=== PATIENT | female | born 1980 | race Two or more races ===

== ENCOUNTER 2017-06-18 10:48 | Inpatient (IN) | payer MEDICAID, OTHER ==
[~2017-06-18] VITALS: Ht 172.7 cm; Wt 173.8 kg
[2017-06-18 11:35] LABS: Basophils # (auto) 0.1 uL; Eosinophils # (auto) 0.2 uL; Mean Corpuscular Hemoglobin 20.2 pg (28.0-32.0); Monocytes # (auto) 0.3 uL
[2017-06-18 11:43] LABS: Basophils % (auto) 1.3 % (0.0-2.0); Eosinophils % (auto) 3.4 % (0.0-7.0); Hemoglobin 8.4 g/dL (12.2-16.2); Lymphocytes % (auto) 16.5 % (10.0-50.0); Mean Corpuscular Hgb Conc. 30.2 g/dL (32.0-36.0); Monocytes % (auto) 5.2 % (0.0-12.0); Neutrophils # (auto) 4.6 uL; Neutrophils % (auto) 73.6 % (37.0-80.0); Platelet Count (auto) 373 10^3/uL (140-450); Red Blood Cells 4.19 10^6/uL (4.0-5.20)
[2017-06-18 11:48] LABS: Mean Corpuscular Volume 67.1 fL (80.0-100.0); Red Cell Distribution Width 24.7 % (11.8-14.3); White Blood Cell 6.4 10^3/uL (4.4-10.8)
[2017-06-18 12:06] LABS: Albumin 3.1 g/dL (3.4-5.0); BUN/Creatinine Ratio 14.8; Bilirubin, Total 0.2 mg/dL (0.2-1.0); Calcium 8.7 mg/dL (8.5-10.1); Potassium 3.2 mmol/L (3.5-5.1); Total Protein 8.4 g/dL (6.4-8.2)
[2017-06-18] MEDS ORDERED: SODIUM CHLORIDE 0.9% 500 ML IVB ONE (16:40)
[2017-06-18] MEDS ORDERED: PANTOPRAZOLE 40 MG/10 ML VIAL IV STA (16:40)
[2017-06-18] MEDS ORDERED: ONDANSETRON HCL 4 MG/2 ML VIAL IV ONE (16:45)
[2017-06-18] MEDS ORDERED: HYDROmorphone HCL 2 MG/ML VL IV ONE (16:45)
[2017-06-18] MEDS ORDERED: METOCLOPRAMIDE HCL 5MG/ml INJ 2ml VIAL IV PRN (18:15)
[2017-06-18] MEDS: POTASSIUM CHL 20MEQ/50ML 50 ML IV SCH ×2 (18:15→20:15)
[2017-06-18] MEDS ORDERED: MORPHINE SULFATE 10 MG/ML INJ 1ML SDV IV PRN (18:15)
[2017-06-18] MEDS ORDERED: ACETAMINOPHEN 325 MG TAB PO PRN (18:15)
[2017-06-18] MEDS ORDERED: NITROGLYCERIN 0.4 MG SL TAB SL PRN (18:15)
[2017-06-18] MEDS ORDERED: cloNIDine HCL 0.1 MG TAB ONE (18:55)
[2017-06-18] MEDS ORDERED: cloNIDine HCL 0.1 MG TAB PO PRN (18:58)
[2017-06-18] MEDS: SOD CHL 0.45% 1,000 ML IV SCH (19:09)
[2017-06-18] MEDS ORDERED: POTASSIUM CHL 20 Meq TABLET PO ONE (19:30)
[2017-06-18 19:31] VITALS: BP 165/96
[2017-06-18 20:15] VITALS: BP 123/78
[2017-06-18] MEDS: MORPHINE SULFATE 10 MG/ML INJ 1ML SDV IV PRN (20:26)
[2017-06-18 22:00] VITALS: BP 123/78
[2017-06-19] MEDS: MORPHINE SULFATE 10 MG/ML INJ 1ML SDV IV PRN ×6 (00:30→21:07)
[2017-06-19] MEDS ORDERED: HYDR-4416 PO (00:52)
[2017-06-19] MEDS ORDERED: HCTZ25T PO (00:52)
[2017-06-19] MEDS ORDERED: HYDR25TA35 PO (00:52)
[2017-06-19] MEDS ORDERED: CLON0.2T PO (00:52)
[2017-06-19] MEDS ORDERED: HYDR-4683 PO (00:52)
[2017-06-19] MEDS ORDERED: LOSA50TA6 PO (00:52)
[2017-06-19] MEDS ORDERED: HYDR1TAB97 PO (00:52)
[2017-06-19] MEDS ORDERED: ALPR1TAB7 PO (00:52)
[2017-06-19] MEDS ORDERED: HYDR-4072 PO (00:52)
[2017-06-19] MEDS ORDERED: FERR-20 PO (00:52)
[2017-06-19] MEDS: SOD CHL 0.45% 1,000 ML IV SCH ×2 (04:18→20:41)
[2017-06-19 05:00] VITALS: BP 130/80
[2017-06-19 05:31] LABS: Basophils # (auto) 0 uL; Basophils % (auto) 0.5 % (0.0-2.0); Eosinophils # (auto) 0.2 uL; Lymphocytes # (auto) 1.6 uL; Monocytes # (auto) 0.4 uL; Neutrophils # (auto) 3.6 uL; White Blood Cell 5.9 10^3/uL (4.4-10.8)
[2017-06-19 05:34] LABS: Eosinophils % (auto) 3.7 % (0.0-7.0); Hemoglobin 7.7 g/dL (12.2-16.2); Lymphocytes % (auto) 26.6 % (10.0-50.0); Mean Corpuscular Hemoglobin 20.8 pg (28.0-32.0); Mean Corpuscular Volume 67.2 fL (80.0-100.0); Monocytes % (auto) 7.2 % (0.0-12.0); Platelet Count (auto) 365 10^3/uL (140-450); Red Blood Cells 3.71 10^6/uL (4.0-5.20)
[2017-06-19 05:43] LABS: % Iron Saturation 6.7 % (15-50)
[2017-06-19 05:44] LABS: Red Cell Distribution Width 25.1 % (11.8-14.3)
[2017-06-19 05:47] LABS: Albumin 2.7 g/dL (3.4-5.0); BUN/Creatinine Ratio 16.3; Calcium 8.3 mg/dL (8.5-10.1); Potassium 3.6 mmol/L (3.5-5.1)
[2017-06-19 05:49] LABS: Bilirubin, Total 0.4 mg/dL (0.2-1.0); Total Protein 7.9 g/dL (6.4-8.2)
[2017-06-19 09:00] VITALS: BP 136/78
[2017-06-19 13:00] VITALS: BP 146/78
[2017-06-19] MEDS: ALPRAZolam 0.5 MG TAB PO PRN ×2 (14:08→22:05)
[2017-06-19 16:55] VITALS: BP 153/91
[2017-06-19 20:00] VITALS: BP 134/75
[2017-06-19] MEDS ORDERED: MORPHINE SULFATE 4 MG/ML SYR/VIAL ONE (20:56)
[2017-06-19] MEDS: PANTOPRAZOLE 40 MG/10 ML VIAL IV SCH ×2 (21:08→22:00)
[2017-06-19] MEDS: ONDANSETRON HCL 4 MG/2 ML VIAL IV PRN (21:51)
[2017-06-19 23:11] VITALS: BP 134/75
[2017-06-20 00:45] LABS: Urine Blood Negative /uL (Negative); Urine Specific Gravity 1.024 (1.001-1.035)
[2017-06-20 00:50] LABS: Urine Bacteria 1+ /hpf (None Seen); Urine Hyaline Cast RARE /lpf (0 - 2); Urine Mucus FEW (None Seen)
[2017-06-20 00:51] LABS: Urine WBC 1 /hpf (0 - 5)
[2017-06-20] MEDS ORDERED: DOCUSATE SOD 100 MG CAP PO ONE (01:00)
[2017-06-20] MEDS ORDERED: ZOLPIDEM TARTRATE 5 MG TAB PO ONE (01:00)
[2017-06-20] MEDS ORDERED: MORPHINE SULFATE 4 MG/ML SYR/VIAL ONE ×2 (01:35→06:02)
[2017-06-20] MEDS: MORPHINE SULFATE 10 MG/ML INJ 1ML SDV IV PRN ×6 (01:43→23:14)
[2017-06-20 05:00] VITALS: BP 141/63
[2017-06-20 05:44] LABS: Basophils # (auto) 0 uL; Basophils % (auto) 0.6 % (0.0-2.0); Eosinophils # (auto) 0.2 uL; Lymphocytes # (auto) 1.6 uL; Mean Corpuscular Hemoglobin 20.8 pg (28.0-32.0); Monocytes # (auto) 0.4 uL; Neutrophils % (auto) 57.5 % (37.0-80.0); White Blood Cell 5.2 10^3/uL (4.4-10.8)
[2017-06-20 05:47] LABS: Eosinophils % (auto) 4.5 % (0.0-7.0); Hematocrit 24.4 % (36.0-46.0); Hemoglobin 7.6 g/dL (12.2-16.2); Mean Corpuscular Hgb Conc. 31.3 g/dL (32.0-36.0); Mean Corpuscular Volume 66.6 fL (80.0-100.0); Monocytes % (auto) 7.4 % (0.0-12.0); Platelet Count (auto) 346 10^3/uL (140-450); Red Blood Cells 3.66 10^6/uL (4.0-5.20)
[2017-06-20 05:50] LABS: Red Cell Distribution Width 25.4 % (11.8-14.3)
[2017-06-20 06:02] LABS: Albumin 2.7 g/dL (3.4-5.0); Calcium 8.4 mg/dL (8.5-10.1); Potassium 3.6 mmol/L (3.5-5.1)
[2017-06-20 06:04] LABS: BUN/Creatinine Ratio 14.9
[2017-06-20 06:07] LABS: Bilirubin, Total 0.2 mg/dL (0.2-1.0); Total Protein 7.2 g/dL (6.4-8.2)
[2017-06-20] MEDS: FERROUS SULFATE 325 MG TAB PO SCH ×2 (08:08→18:45)
[2017-06-20] MEDS: ALPRAZolam 0.5 MG TAB PO PRN ×2 (08:08→21:32)
[2017-06-20 09:00] VITALS: BP_SYST 109; BP_SYST 142; BP_DIAS 102; BP_DIAS 72
[2017-06-20] MEDS: PANTOPRAZOLE 40 MG/10 ML VIAL IV SCH ×2 (10:00→21:32)
[2017-06-20] MEDS: SOD CHL 0.45% 1,000 ML IV SCH ×2 (10:01→23:21)
[2017-06-20 13:00] VITALS: BP 158/98
[2017-06-20] MEDS: ONDANSETRON HCL 4 MG/2 ML VIAL IV PRN (16:37)
[2017-06-20 17:00] VITALS: BP 142/79
[2017-06-20 20:00] VITALS: BP 133/83
[2017-06-20 22:00] VITALS: BP 133/83
[2017-06-21] MEDS: ONDANSETRON HCL 4 MG/2 ML VIAL IV PRN ×2 (01:11→22:50)
[2017-06-21] MEDS: MORPHINE SULFATE 10 MG/ML INJ 1ML SDV IV PRN ×5 (03:16→22:51)
[2017-06-21 04:54] VITALS: BP 133/85
[2017-06-21] MEDS: ALPRAZolam 0.5 MG TAB PO PRN ×2 (05:50→14:21)
[2017-06-21] MEDS ORDERED: FLUMAZENIL 0.1 MG/ML INJ 10ML MDV IV ONE (07:38)
[2017-06-21] MEDS ORDERED: SODIUM CHLORIDE LOCK 10 ML ONE (07:38)
[2017-06-21] MEDS: FERROUS SULFATE 325 MG TAB PO SCH ×2 (07:38→17:36)
[2017-06-21] MEDS ORDERED: NALOXONE HCL 0.4 MG/ML VIAL ONE (07:38)
[2017-06-21] MEDS ORDERED: LIDOCAINE VISCOUS 2% 15ML UD ONE (07:39)
[2017-06-21] MEDS ORDERED: diphenhdrAMINE HCL 50 MG/1 ML VL ONE (07:39)
[2017-06-21] MEDS ORDERED: MIDAZOLAM HCL 5 MG/ML-1ML VIAL ONE (07:39)
[2017-06-21] MEDS ORDERED: fentaNYL CITRATE 100 MCG/2 ML VL ONE (07:39)
[2017-06-21 09:00] VITALS: BP 127/72
[2017-06-21 09:39] LABS: Basophils # (auto) 0 uL; Eosinophils # (auto) 0.2 uL; Hemoglobin 7.7 g/dL (12.2-16.2); Lymphocytes # (auto) 1.4 uL; Monocytes # (auto) 0.4 uL; Neutrophils # (auto) 3.3 uL
[2017-06-21 09:41] LABS: Basophils % (auto) 0.6 % (0.0-2.0); Eosinophils % (auto) 4.1 % (0.0-7.0); Hematocrit 25.4 % (36.0-46.0); Lymphocytes % (auto) 26.3 % (10.0-50.0); Mean Corpuscular Hemoglobin 20.4 pg (28.0-32.0); Mean Corpuscular Hgb Conc. 30.4 g/dL (32.0-36.0); Mean Corpuscular Volume 67.1 fL (80.0-100.0); Platelet Count (auto) 352 10^3/uL (140-450); Red Blood Cells 3.78 10^6/uL (4.0-5.20); White Blood Cell 5.4 10^3/uL (4.4-10.8)
[2017-06-21 09:43] LABS: Red Cell Distribution Width 24.2 % (11.8-14.3)
[2017-06-21 09:52] LABS: INR 1.04 (0.9-1.15); Partial Thromboplastin Time 28.4 sec (22.64-33.71); Prothrombin Time 11.3 sec (9.37-12.3)
[2017-06-21 09:58] LABS: Albumin 2.8 g/dL (3.4-5.0); BUN/Creatinine Ratio 14.8; Calcium 8.3 mg/dL (8.5-10.1); Potassium 3.5 mmol/L (3.5-5.1)
[2017-06-21 10:00] LABS: Bilirubin, Total 0.2 mg/dL (0.2-1.0); Total Protein 7.4 g/dL (6.4-8.2)
[2017-06-21] MEDS: PANTOPRAZOLE 40 MG/10 ML VIAL IV SCH (10:25)
[2017-06-21] MEDS ORDERED: TEMAZEPAM 15 MG CAP PO PRN (11:00)
[2017-06-21] MEDS: SOD CHL 0.45% 1,000 ML IV SCH (12:41)
[2017-06-21 13:00] VITALS: BP_SYST 117; BP_SYST 141; BP_DIAS 73; BP_DIAS 77
[2017-06-21] MEDS: DOCUSATE SOD 100 MG CAP PO PRN (16:42)
[2017-06-21 17:00] VITALS: BP 129/59
[2017-06-21 22:00] VITALS: BP 144/96
[2017-06-21] MEDS: PANTOPRAZOLE 40 MG TAB PO SCH (22:50)
[2017-06-22] MEDS: ALPRAZolam 0.5 MG TAB PO PRN ×2 (00:19→11:01)
[2017-06-22] MEDS: SOD CHL 0.45% 1,000 ML IV SCH (02:01)
[2017-06-22] MEDS: MORPHINE SULFATE 10 MG/ML INJ 1ML SDV IV PRN ×3 (03:46→14:31)
[2017-06-22 04:50] VITALS: BP 145/98
[2017-06-22 05:34] LABS: Hemoglobin 8.2 g/dL (12.2-16.2); Lymphocytes # (auto) 1.4 uL; Monocytes # (auto) 0.5 uL; Neutrophils # (auto) 4.1 uL; Nucleated Red Blood Cells % 0.1 %; White Blood Cell 6.3 10^3/uL (4.4-10.8)
[2017-06-22 05:36] LABS: Basophils # (auto) 0.1 uL; Basophils % (auto) 1.1 % (0.0-2.0); Eosinophils # (auto) 0.3 uL; Eosinophils % (auto) 4.4 % (0.0-7.0); Hematocrit 26.6 % (36.0-46.0); Lymphocytes % (auto) 22.4 % (10.0-50.0); Mean Corpuscular Hemoglobin 20.7 pg (28.0-32.0); Mean Corpuscular Hgb Conc. 30.8 g/dL (32.0-36.0); Mean Corpuscular Volume 67.2 fL (80.0-100.0); Monocytes % (auto) 7.2 % (0.0-12.0); Neutrophils % (auto) 64.9 % (37.0-80.0); Platelet Count (auto) 381 10^3/uL (140-450); Red Blood Cells 3.95 10^6/uL (4.0-5.20)
[2017-06-22 05:42] LABS: Red Cell Distribution Width 24.9 % (11.8-14.3)
[2017-06-22 06:06] LABS: Albumin 2.8 g/dL (3.4-5.0); BUN/Creatinine Ratio 14.8; Bilirubin, Total 0.1 mg/dL (0.2-1.0); Calcium 8.5 mg/dL (8.5-10.1); Potassium 3.6 mmol/L (3.5-5.1); Total Protein 7.3 g/dL (6.4-8.2)
[2017-06-22 08:43] VITALS: BP_SYST 127; BP_SYST 142; BP_DIAS 80; BP_DIAS 89
[2017-06-22] MEDS: DOCUSATE SOD 100 MG CAP PO PRN (09:44)
[2017-06-22] MEDS: FERROUS SULFATE 325 MG TAB PO SCH (09:44)
[2017-06-22] MEDS: PANTOPRAZOLE 40 MG TAB PO SCH (09:44)
[2017-06-22] MEDS: ONDANSETRON HCL 4 MG/2 ML VIAL IV PRN ×2 (09:49→14:32)
[2017-06-22 13:00] VITALS: BP 148/101
[2017-06-22] MEDS ORDERED: PANT40T PO (13:56)
[2017-06-22] MEDS ORDERED: hydrALAZINE HCL 25 MG TAB PO SCH (14:00)
[2017-06-22 15:11] VITALS: BP 148/101
[2017-06-22] MEDS ORDERED: HYDR-4683 PO (15:37)
== END 2017-06-22 16:30 | disposition home or self-care (01) | DRG 241 ==
LOC: EDBD 10:48 → ER 10:48 → OVERFLOW 10:49 → WEST WING 19:40
PROVIDERS: ADMIT Internal Medicine; ATTEND Internal Medicine
PROC: 0DB68ZX Excision of Stomach, Via Natural or Artificial Opening Endoscopic, Diagnostic (ICD-10-PCS; principal; 2017-06-21 11:10)
DX: K29.81 Duodenitis with bleeding (principal); E43 Unspecified severe protein-calorie malnutrition; Z68.43 Body mass index [BMI] 50.0-59.9, adult; D50.9 Iron deficiency anemia, unspecified; F17.210 Nicotine dependence, cigarettes, uncomplicated; I10 Essential (primary) hypertension; Z71.3 Dietary counseling and surveillance; K29.71 Gastritis, unspecified, with bleeding; K80.20 Calculus of gallbladder without cholecystitis without obstruction; E87.6 Hypokalemia; E66.01 Morbid (severe) obesity due to excess calories; K59.00 Constipation, unspecified; F41.9 Anxiety disorder, unspecified; N92.1 Excessive and frequent menstruation with irregular cycle; Z80.0 Family history of malignant neoplasm of digestive organs; Z79.899 Other long term (current) drug therapy
CPT/HCPCS: 36415; 43239; 76705; 80053; 81001; 83540; 83550; 83690; 84702; 85025; 85610; 85730; 93005; C9113; J2250; J2405